=== PATIENT | female | born 1975 | race Caucasian/White ===

== ENCOUNTER 2021-07-03 05:52 | Emergency (ER) | payer BC ==
[~2021-07-03] VITALS: Ht 160 cm; Wt 83.5 kg
[2021-07-03] MEDS ORDERED: LISINOPRIL10 MG PO (06:04)
[2021-07-03] MEDS ORDERED: SERTRALINE HCL100 MG PO (06:05)
[2021-07-03] MEDS ORDERED: ALLEGRA ALLERG180 MG PO (06:05)
[2021-07-03 06:36] LABS: HEMATOCRIT 38.8 % (37.0-47.0); HEMOGLOBIN 13.2 gm/dL (12.0-15.0); MCHC 34.1 g/dL (28.0-37.0); MCV 87.9 fL (80.0-100.0); MPV 9.9 fl. (7.2-11.1); RBC 4.41 mil/uL (4.20-5.00); RDW-CV 12.6 % (10.5-14.5); WBC 7.2 thou/uL (4.0-11.0)
[2021-07-03 06:44] LABS: CALCIUM 8.7 mg/dL (8.5-10.1); CREATININE 1.1 mg/dL (0.6-1.3); POTASSIUM 3.6 mmol/L (3.5-5.1)
[2021-07-03 06:48] LABS: ALBUMIN 3.6 g/dL (3.4-5.0); TOTAL BILIRUBIN 0.7 mg/dL (<0.1-1.0)
[2021-07-03 06:57] LABS: URINE BILIRUBIN NEGATIVE (Negative); URINE BLOOD 3+ (Negative); URINE CLARITY CLEAR; URINE COLOR YELLOW; URINE GLUCOSE-RANDOM NEGATIVE (Negative); URINE PROTEIN 2+ (Negative); URINE SPECIFIC GRAVITY 1.025 (1.005-1.030)
[2021-07-03 07:01] LABS: URINE KETONES 3+ (Negative); URINE LEUKOCYTES-REFLEX 2+ (Negative); URINE NITRITE-REFLEX POSITIVE (Negative)
[2021-07-03 07:09] LABS: BACTERIA-REFLEX None Seen /HPF (None Seen); CASTS None Seen /LPF (None Seen); CRYSTALS None Seen /LPF (None Seen); MUCUS None Seen strn/LPF (None Seen); SQUAMOUS NONE SEEN /LPF (0-3); URINE RBC >20 Many /HPF (0-2); URINE WBC-REFLEX 0-5 Rare /HPF (0-5)
[2021-07-03 07:26] VITALS: BP 120/59
--- NOTE | 2021-07-03 10:37 | EKG ---
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[place] : 1975 Requested By: Reshma Marcano Order Number: [id number] MD: Jeovanny Marshall Measurements Intervals [place] Rate: 106 P: 76 AR: 116 QRS: 0 QRSD: 102 T: 47 QT: 325 QTc: 432 Interpretive Statements Sinus tachycardia Abnormal R-wave progression, early transition Nonspecific anterior precordial ST-T abnormalities; ischemia must be considered No previous ECG available for comparison Electronically Signed On 07-03-2021 10:36:46 CDT by Jeovanny Marshall [email or web address] <ELECTRONICALLY SIGNED> By: Jeovanny Marshall MD, [facility] 07/03/21 1036 0556 [id number] Jeovanny Marshall MD, [facility] /EPI
== END 2021-07-03 07:33 | disposition home or self-care (01) ==
LOC: M.ERS 05:52
PROVIDERS: Personal Emergency Response Attendant
DX: R11.2 Nausea with vomiting, unspecified (principal); T43.225A Adverse effect of selective serotonin reuptake inhibitors, initial encounter; R00.0 Tachycardia, unspecified; I10 Essential (primary) hypertension; F41.9 Anxiety disorder, unspecified; Z98.890 Other specified postprocedural states; Z79.899 Other long term (current) drug therapy; Z88.0 Allergy status to penicillin; Y92.89 Other specified places as the place of occurrence of the external cause